=== PATIENT | female | born 2005 | race Caucasian/White ===

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

== ENCOUNTER 2024-02-04 14:27 | Emergency (ER) | payer BC | END 2024-02-04 15:00 | disposition home or self-care (01) | LOC: NAV ERS 14:27 | DX: L03.032 Cellulitis of left toe (principal) | CPT/HCPCS: 99283 ==

== ENCOUNTER 2025-03-23 16:28 | Emergency (ER) | payer BC ==
[2025-03-23] MEDS ORDERED: diphenhydrAMINE 50 MG/ML VIAL ONE (17:06)
[2025-03-23] MEDS ORDERED: Metoclopramide HCl 10 MG (2 mL) VIAL ONE ×2 (17:06→18:15)
[2025-03-23] MEDS ORDERED: Ketorolac Tromethamine 30 MG (1 mL) VIAL ONE (18:15)
[2025-03-23] MEDS ORDERED: Magnesium 2 GM/50 ML BAG (IN WATER) ONE (18:15)
== END 2025-03-23 20:06 | disposition home or self-care (01) ==
LOC: NAV ERS 16:28
DX: G43.909 Migraine, unspecified, not intractable, without status migrainosus (principal)
CPT/HCPCS: 96365; 96366; 96367; 96375; J1200; J1885; J2765; J3475; J7030